=== PATIENT | male | born 1940 | race Caucasian/White ===

== ENCOUNTER 2019-01-13 06:46 | Inpatient (IN) | payer MEDICARE ==
[~2019-01-13] VITALS: Ht 170.2 cm; Wt 85.5 kg
[2019-01-13 07:13] LABS: BASO # 0.1 (0.0-0.2); BASO % 0.9 % (0.0-2.0); EOS # 0.4 (0.0-0.7); EOS % 5.4 % (0-4.0); GRAN # 3.3 (1.4-6.5); GRAN % 49.7 % (42.2-75.2); HEMATOCRIT 43.6 % (42.0-52.0); HEMOGLOBIN 14.5 g/dl (13.5-18.0); LYMPH # 2.2 (1.2-3.4); MEAN CELL VOLUME 97 fl (80.0-100.0); MEAN CORPUSCULAR HEMOGLOBIN 32 pg (27.0-31.0); MEAN CORPUSCULAR HGB CONC 33 g/dl (33.0-37.0); MEAN PLATELET VOLUME 9.1 fl (7.4-10.4); MONO # 0.7 (0.1-0.6); MONO % 10.7 % (1.7-9.3); PLATELET COUNT 246 K/mm3 (130-400)
[2019-01-13 07:18] LABS: PROTHROMBIN TIME 11.2 SECONDS (9.7-12.8)
[2019-01-13 07:21] LABS: PARTIAL THROMBOPLASTIN TIME 30.6 SECONDS (26.0-37.0)
[2019-01-13 07:23] LABS: ALBUMIN 3.7 gm/dL (3.5-5.0); BILIRUBIN,TOTAL 0.7 mg/dL (0.0-1.0); CALCIUM 8.8 mg/dL (8.4-10.2); CREATININE, serum 0.94 (0.66-1.25); POTASSIUM 4.2 mmol/L (3.4-5.0); TOTAL PROTEIN 6.8 gm/dL (6.4-8.2)
[2019-01-13 07:36] LABS: TROPONIN-I 0.036 ng/mL (0.000-0.035)
[2019-01-13 07:38] LABS: LIPASE 109 U/L (23-300)
[2019-01-13] MEDS ORDERED: VENTOLIN0.09 MG INH (09:41)
[2019-01-13] MEDS ORDERED: INCRUSE EL62.5 MCG/A INH (09:41)
[2019-01-13 10:23] VITALS: BP 132/87; PULSE 62; TEMP 97.2
[2019-01-13 13:29] LABS: CALCIUM 8.4 mg/dL (8.4-10.2); CREATININE, serum 0.83 (0.66-1.25); POTASSIUM 4.3 mmol/L (3.4-5.0)
[2019-01-13 15:21] LABS: HEMATOCRIT 39.4 % (42.0-52.0); HEMOGLOBIN 13.1 g/dl (13.5-18.0); MEAN CELL VOLUME 98 fl (80.0-100.0); MEAN CORPUSCULAR HEMOGLOBIN 32 pg (27.0-31.0); MEAN CORPUSCULAR HGB CONC 33 g/dl (33.0-37.0); MEAN PLATELET VOLUME 9.1 fl (7.4-10.4); PLATELET COUNT 235 K/mm3 (130-400); RED BLOOD COUNT 4.04 M/mm3 (4.20-5.60)
[2019-01-13 15:48] LABS: PARTIAL THROMBOPLASTIN TIME 35.6 SECONDS (26.0-37.0)
--- NOTE | 2019-01-13 18:09 | NUR ---
Pt arrived from the ED this morning, he has some C/O pain in the upper right quadrent, no C/O chest pain currently, Pt has been ambulatory in the room without issues, Vs have remained stable since arriving to the floor. Initial assessments have been completed.
[2019-01-13 19:31] VITALS: BP 133/63; PULSE 78; TEMP 97.8
--- NOTE | 2019-01-13 20:15 | NUR ---
Patient resting in bed, assessment completed, no complaints of pain. Heparin gtt infusing at 10 mls/hr at this time. Redraw of heparin xa at 2155 this evening. Returned from recliner now resting comfortably in bed. Has no further needs at this time.
[2019-01-13 23:58] VITALS: BP 117/71; PULSE 75; TEMP 98.9
[2019-01-14] VITALS (325 sets, daily range): BP systolic 118–165; BP diastolic 64–106; PULSE 56–75; TEMP 97.6–98.2; O2SAT 85–100
[2019-01-14 00:39] LABS: PARTIAL THROMBOPLASTIN TIME 76.1 SECONDS (26.0-37.0)
--- NOTE | 2019-01-14 06:15 | NUR ---
Tick found on patient near left upper thigh/groin. Removed by TARA Welsh. Placed in speciment cup and placed in patient's room.
--- NOTE | 2019-01-14 06:49 | NUR ---
report given to abimbola ross
[2019-01-14 07:43] LABS: BASO # 0.1 (0.0-0.2); BASO % 0.9 % (0.0-2.0); EOS # 0.3 (0.0-0.7); GRAN # 4.7 (1.4-6.5); GRAN % 57.5 % (42.2-75.2); HEMATOCRIT 41.6 % (42.0-52.0); HEMOGLOBIN 13.6 g/dl (13.5-18.0); LYMPH # 2.4 (1.2-3.4); LYMPH % 28.9 % (20.0-51.0); MEAN CELL VOLUME 97 fl (80.0-100.0); MEAN CORPUSCULAR HEMOGLOBIN 32 pg (27.0-31.0); MEAN CORPUSCULAR HGB CONC 33 g/dl (33.0-37.0); MEAN PLATELET VOLUME 9.7 fl (7.4-10.4); MONO # 0.7 (0.1-0.6); MONO % 8.3 % (1.7-9.3); PLATELET COUNT 247 K/mm3 (130-400); RED BLOOD COUNT 4.27 M/mm3 (4.20-5.60); REDCELL DISTRIBUTION WIDTH-CV 12.9 % (11.5-14.5)
[2019-01-14 07:58] LABS: CALCIUM 8.9 mg/dL (8.4-10.2); CHOLESTEROL RISK RATIO 4.3; CREATININE, serum 0.88 (0.66-1.25); POTASSIUM 4.1 mmol/L (3.4-5.0)
[2019-01-14 08:04] LABS: TROPONIN-I 0.428 ng/mL (0.000-0.035)
--- NOTE | 2019-01-14 10:24 | NUR ---
Pt awake with family in room, no C/O pain this morning, shift assessments complete, left Pt call light in reach, bed in lowest position.
--- NOTE | 2019-01-14 10:51 | NUR ---
SW attended clinical rounds to discuss discharge planniing. Patient lives independently at home with his . Patient's PCP is Dr Champion and he obtains prescriptions from [facility]. Patient does not use any DME or home health services. Patient does not have a DPOA but will inform SW if he would like to sign one. SW does not anticipate any discharge needs.
--- NOTE | 2019-01-14 12:42 | NUR ---
SEE MERGE DOCUMENTATION FOR MEDICATION ADMINISTRATION TIMES AND INTRA/POST PROCEDURE SEDATION ASSESSMENTS.
--- NOTE | 2019-01-14 13:41 | NUR ---
Report received from TARA Avalos.
--- NOTE | 2019-01-14 13:47 | NUR ---
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
--- NOTE | 2019-01-14 14:15 | NUR ---
Report received from TARA Simms.
--- NOTE | 2019-01-14 14:27 | NUR ---
Dentures brought down by TARA Simms.
--- NOTE | 2019-01-14 17:04 | NUR ---
Patient resting in bed, denies needs at this time, call light within reach.
--- NOTE | 2019-01-14 19:33 | NUR ---
Bedside report given to TARA Aponte, all lines and tubes verified.
[2019-01-15] VITALS (270 sets, daily range): BP systolic 105–134; BP diastolic 55–75; PULSE 53–67; TEMP 97.6–98; O2SAT 86–100
[2019-01-15 05:23] LABS: BASO # 0.1 (0.0-0.2); BASO % 0.6 % (0.0-2.0); EOS # 0.3 (0.0-0.7); EOS % 3.3 % (0-4.0); GRAN # 6.2 (1.4-6.5); GRAN % 68.4 % (42.2-75.2); HEMATOCRIT 42.5 % (42.0-52.0); LYMPH # 1.7 (1.2-3.4); LYMPH % 18.3 % (20.0-51.0); MEAN CELL VOLUME 97 fl (80.0-100.0); MEAN CORPUSCULAR HEMOGLOBIN 32 pg (27.0-31.0); MEAN CORPUSCULAR HGB CONC 33 g/dl (33.0-37.0); MEAN PLATELET VOLUME 9.3 fl (7.4-10.4); MONO # 0.8 (0.1-0.6); MONO % 9.2 % (1.7-9.3); PLATELET COUNT 242 K/mm3 (130-400); RED BLOOD COUNT 4.38 M/mm3 (4.20-5.60); REDCELL DISTRIBUTION WIDTH-CV 13.1 % (11.5-14.5)
[2019-01-15 05:34] LABS: CALCIUM 9.3 mg/dL (8.4-10.2); CREATININE, serum 0.84 (0.66-1.25); POTASSIUM 4.1 mmol/L (3.4-5.0)
--- NOTE | 2019-01-15 07:00 | NUR ---
Bedside report received from TARA Aponte.
--- NOTE | 2019-01-15 07:35 | NUR ---
Assessment complete, patient resting in bed waiting on breakfast, dressing removed from right femoral groin site, replaced with band-aid. Patient denies needs at this time, call light within reach.
--- NOTE | 2019-01-15 09:15 | NUR ---
Special Delivery Carrier in with patient.
--- NOTE | 2019-01-15 10:42 | NUR ---
Patient ambulating in hallway.
--- NOTE | 2019-01-15 11:20 | NUR ---
Initial visit; Patient and his family thanked Parts Back Counter Man for offering encouragement and God's blessings. Parts Back Counter Man will keep "Gene" in her prayers.
--- NOTE | 2019-01-15 11:43 | NUR ---
Patient ambulating in room, denies needs at this time, call light within reach.
[2019-01-15] MEDS ORDERED: BRILINTA90 MG PO (12:22)
[2019-01-15] MEDS ORDERED: LIPITOR 80MG80 MG PO (12:22)
[2019-01-15] MEDS ORDERED: TOPROL XL 50MG50 MG PO (12:22)
[2019-01-15] MEDS ORDERED: ZESTRIL 10MG10 MG PO (12:23)
[2019-01-15] MEDS ORDERED: ASPIRIN E.C. 8181 MG PO (12:23)
--- NOTE | 2019-01-15 14:27 | NUR ---
Discharge instructions given, questions invited and answered. Family at bedside.
--- NOTE | 2019-01-15 14:39 | NUR ---
Patient escorted out to private vehicle with family, all belongings sent with patient.
== END 2019-01-15 14:39 | disposition home or self-care (01) | DRG 247 ==
LOC: COL.ER 06:46 → MEDICAL 07:56 → ICU 01-14 13:47
PROVIDERS: Emergency Medicine; Hospitalist; Internal Medicine Cardiovascular Disease; Physician Assistant; ADMIT Internal Medicine
PROC: 027135Z Dilation of Coronary Artery, Two Arteries with Two Drug-eluting Intraluminal Devices, Percutaneous Approach (ICD-10-PCS; principal; 2019-01-14)
PROC: 4A023N7 Measurement of Cardiac Sampling and Pressure, Left Heart, Percutaneous Approach (ICD-10-PCS; 2019-01-14)
PROC: B2111ZZ Fluoroscopy of Multiple Coronary Arteries using Low Osmolar Contrast (ICD-10-PCS; 2019-01-14)
DX: I21.4 Non-ST elevation (NSTEMI) myocardial infarction (principal); I50.30 Unspecified diastolic (congestive) heart failure; J44.9 Chronic obstructive pulmonary disease, unspecified; F17.290 Nicotine dependence, other tobacco product, uncomplicated; I25.10 Atherosclerotic heart disease of native coronary artery without angina pectoris
CPT/HCPCS: 99222-AI; 99232-AI; 99239; C1725; C1760; C1769; C1874; C1887; C1894; J0583; J1644; J1650; J2250; J3010; J7030; Q9967

== ENCOUNTER 2019-04-23 13:30 | Outpatient (RCR) | payer MEDICARE ==
[~2019-04-23 13:30] MED LIST: ASPIRIN E.C. 8181 MG PO; BRILINTA90 MG PO; INCRUSE EL62.5 MCG/A INH; LIPITOR 80MG80 MG PO; TOPROL XL 50MG50 MG PO; VENTOLIN0.09 MG INH; ZESTRIL 10MG10 MG PO
== END 2019-04-27 | disposition home or self-care (01) ==
LOC: COL.CR
DX: Z48.812 Encounter for surgical aftercare following surgery on the circulatory system (principal); Z95.2 Presence of prosthetic heart valve

== ENCOUNTER 2019-05-09 13:11 | Outpatient (RCR) | payer MEDICARE | END 2019-05-16 14:24 | disposition still patient (30) | LOC: COL.CR 13:11 | DX: I50.9 Heart failure, unspecified (principal); Z95.5 Presence of coronary angioplasty implant and graft ==

== ENCOUNTER 2020-02-11 13:15 | Outpatient (RCR) | payer MEDICARE | END 2020-04-01 | disposition still patient (30) | LOC: WSC | DX: M16.11 Unilateral primary osteoarthritis, right hip (principal); Z96.641 Presence of right artificial hip joint ==

== ENCOUNTER 2020-07-20 12:49 | Outpatient (RCR) | payer MEDICARE | END 2020-08-23 | disposition home or self-care (01) | LOC: WSST | DX: R13.12 Dysphagia, oropharyngeal phase (principal) ==

== ENCOUNTER → 2020-08-09 | Outpatient (CLI) | payer MEDICARE | LOC: COL.RAD 15:22 | DX: R13.10 Dysphagia, unspecified (principal) ==

== ENCOUNTER 2021-08-04 06:22 | Day surgery (SDC) | payer MEDICARE ==
[~2021-08-04] VITALS: Ht 170.2 cm; Wt 88.1 kg
[2021-08-04] VITALS (7 sets, daily range): BP systolic 91–116; BP diastolic 43–58; PULSE 51–65; TEMP 97.7–97.9
[2021-08-04] MEDS ORDERED: PLAVIX 75MG TAB75 MG PO (08:26)
[2021-08-04] MEDS ORDERED: COZAAR 25MG25 MG/TAB PO (08:27)
[2021-08-04] MEDS ORDERED: TOPROL XL 50MG50 MG PO (08:28)
[2021-08-04] MEDS ORDERED: ASPIRIN 81M81 MG/TA2 PO (08:29)
[2021-08-04] MEDS ORDERED: NITROSTAT0.4 MG/TAB SL (08:29)
[2021-08-04] MEDS ORDERED: LIPITOR 80MG80 MG PO (08:30)
[2021-08-04] MEDS ORDERED: ARICEPT10 MG PO (08:30)
[2021-08-04] MEDS ORDERED: K-TAB10 PO (08:31)
[2021-08-04] MEDS ORDERED: VITAMIN B-625 MG PO (08:32)
[2021-08-04] MEDS ORDERED: NORCO 325 MG-51 TAB PO (09:52)
--- NOTE | 2021-08-04 10:25 | NUR ---
Patient returns to room 7 per cart from PACU accompanied by Jojo RN and is awake and alert. IV fluids infusing and site is free of redness or swelling. Spouse in room. Siderails up x2 and call light in reach. Allowed to rest.
--- NOTE | 2021-08-04 10:40 | NUR ---
Resting and sipping on water and Pepsi. Encouraged deep breathing.
--- NOTE | 2021-08-04 10:55 | NUR ---
Watches TV. Denies pain or nausea.
--- NOTE | 2021-08-04 11:10 | NUR ---
Eating crackers and applesauce. Exofin skin glue covering incisions dry and wound edges remain well approximated.
--- NOTE | 2021-08-04 11:35 | NUR ---
Oxygen at 2L now. Watches TV. Denies nausea or need for pain medications.
--- NOTE | 2021-08-04 12:03 | NUR ---
IV to INT. Assisted up to the bathroom and gait is steady. Patient voids and returns to room. Sitting on edge of cart. Sipping on Pepsi.
--- NOTE | 2021-08-04 12:30 | NUR ---
INT discontinued and site is free of redness or swelling. Patient is dressed. Given discharge instructions and voices understanding of these. Instructed that pain medication is at [facility].
--- NOTE | 2021-08-04 12:34 | NUR ---
Patient dismissed to home driven by spouse and taken to vehicle per wheelchair and assisted into vehicle with instructions in hand.
== END 2021-08-04 12:34 | disposition home or self-care (01) ==
LOC: SDCO 06:22
DX: K40.90 Unilateral inguinal hernia, without obstruction or gangrene, not specified as recurrent (principal); I25.10 Atherosclerotic heart disease of native coronary artery without angina pectoris; I10 Essential (primary) hypertension; I25.2 Old myocardial infarction; J44.9 Chronic obstructive pulmonary disease, unspecified; E78.5 Hyperlipidemia, unspecified; M19.90 Unspecified osteoarthritis, unspecified site; Z79.899 Other long term (current) drug therapy; Z79.82 Long term (current) use of aspirin; Z79.02 Long term (current) use of antithrombotics/antiplatelets; Z87.891 Personal history of nicotine dependence; Z95.1 Presence of aortocoronary bypass graft
CPT/HCPCS: C1781; J0690; J1100; J1885; J2405; J2704; J3010; J7120

== ENCOUNTER 2023-12-11 05:08 | Day surgery (SDC) | payer MEDICARE ==
[~2023-12-11] VITALS: Ht 170.2 cm; Wt 96.4 kg
[2023-12-11] VITALS (14 sets, daily range): BP systolic 96–155; BP diastolic 50–72; PULSE 50–66; TEMP 97.9–98.2
[~2023-12-11 05:08] MED LIST changes: +ARICEPT10 MG PO; +ASPIRIN 81M81 MG/TA2 PO; +COZAAR 25MG25 MG/TAB PO; +K-TAB10 PO; +NITROSTAT0.4 MG/TAB SL; +NORCO 325 MG-51 TAB PO; +PLAVIX 75MG TAB75 MG PO; +VITAMIN B-625 MG PO
[2023-12-11] MEDS ORDERED: POTASSIUM PO (06:19)
[2023-12-11] MEDS ORDERED: MIRTAZAPINE7.5 MG PO (06:20)
[2023-12-11] MEDS ORDERED: REQUIP2 MG PO (06:23)
[2023-12-11] MEDS ORDERED: Ondansetron 4 MG/2 ML VIAL ONE (06:50)
[2023-12-11] MEDS ORDERED: Lidocaine PF 2% (20 MG/ML) 5 ML VIAL ONE (06:50)
[2023-12-11] MEDS ORDERED: fentaNYL 50 MCG/ML 2 ML VIAL ONE (06:50)
[2023-12-11] MEDS ORDERED: dexAMETHasone 10 MG/ML VIAL ONE (06:50)
[2023-12-11] MEDS ORDERED: Meperidine 50 MG/ML 1 ML VIAL IV PRN (07:00)
[2023-12-11] MEDS ORDERED: droPERidol 2.5 MG/ML 2 ML VIAL IV PRN (07:00)
[2023-12-11] MEDS ORDERED: HYDROmorphone 1 MG/1 ML SYRINGE [PACU/SDC ONLY] IV PRN (07:00)
[2023-12-11] MEDS ORDERED: fentaNYL 50 MCG/ML 1 ML SYRINGE/VIAL [PACU/SDC ONLY] IV PRN (07:00)
[2023-12-11] MEDS ORDERED: hydrALAZINE 20 MG/ML 1 ML VIAL IV PRN (07:00)
[2023-12-11] MEDS ORDERED: ePHEDrine 50 MG/ML VIAL ONE (07:16)
[2023-12-11] MEDS ORDERED: NS Irrig Soln 3000 ML SOLN IR PRN (07:30)
[2023-12-11] MEDS ORDERED: Magnes Hydrox (MOM) 80 MG/ML 30 ML CUP PO PRN (07:30)
[2023-12-11] MEDS ORDERED: Naloxone 0.4 MG/ML VIAL IV PRN (07:30)
[2023-12-11] MEDS ORDERED: Iohexol 350 - 100 ML VIAL URETER-B ONE (07:30)
[2023-12-11] MEDS ORDERED: Lidocaine 2% (20 MG/ML) 20 ML UROJET UR ONE (07:30)
[2023-12-11] MEDS ORDERED: 1/2 NS & 20 mEq KCl 1,000 ML IV SCH (07:30)
[2023-12-11] MEDS ORDERED: Hyoscyamine 0.125 MG Sublingual TAB SL PRN (07:30)
[2023-12-11] MEDS ORDERED: Ondansetron 4 MG/2 ML VIAL IV PRN (07:30)
--- NOTE | 2023-12-11 08:45 | NUR ---
pt brought to room from pacu, at bedside. vss. CBI running at a fast rate, clear output in rousseau bag. pt experiencing bladder spasms, repositioned pt and he feels much better. pt tolerating clear liquids. med rec and assessment complete. INT to right hand patent. pt on 2L nasal cannula. scds to ble. pt denies needs at this time. call light in reach. oriented to room.
[2023-12-11] MEDS ORDERED: Losartan 25 MG TAB PO SCH (09:00)
[2023-12-11] MEDS ORDERED: Docusate Sodium 100 MG CAP PO SCH (09:00)
--- NOTE | 2023-12-11 14:19 | NUR ---
assisted pt to bathroom, pt had medium sized hard bowel movement. pt reports feeling less bladder spasms already. levsin also given to relieve symptoms. pt transferred to recliner, gait steady. running at moderate rate w pink urine output.
[2023-12-11] MEDS ORDERED: LR 1,000 ML IV SCH (15:00)
[2023-12-11] MEDS ORDERED: Melatonin 3 MG TAB PO PRN (21:00)
[2023-12-11] MEDS ORDERED: Donepezil 5 MG TAB PO SCH (21:00)
--- NOTE | 2023-12-11 21:30 | NUR ---
PT IN BED, HAS CBI RUNNING SLOW WITH PINK URINE IN TUBING. YEN PATENT. TAKING FLUIDS WELL, CAPPED IVF NOW. INT TO RT HAND NOW. HS MEDS GIVEN. IS ALERT AND ORIENTED X4. SCDS ON. WEARING OXYGEN AT 1L/NC.
--- NOTE | 2023-12-11 23:53 | NUR ---
NORCO GIVEN FOR BLADDER PAIN. PT READY FOR SLEEP.
[2023-12-12 00:06] VITALS: BP 133/73; PULSE 68; TEMP 98.2
[2023-12-12 01:36] VITALS: BP_SYST 133
[2023-12-12 03:49] VITALS: BP 124/73; PULSE 66; TEMP 98.1
[2023-12-12 04:33] VITALS: BP_SYST 124
--- NOTE | 2023-12-12 06:00 | NUR ---
CBI SLOW, URINE LIGHT PINK. DENIES PAIN.
[2023-12-12 08:00] VITALS: BP 129/71; PULSE 71; TEMP 98.1
[2023-12-12] MEDS ORDERED: rOPINIRole 1 MG TAB PO SCH (08:00)
--- NOTE | 2023-12-12 08:30 | NUR ---
pt a&ox4 resting in bed. meds given and assessment complete. vss. cbi running slow w pink clear output. pt reports some discomfort but denies wanting pain medication. pt denies needs at this time. call light in reach.
--- NOTE | 2023-12-12 08:45 | NUR ---
rousseau discontinued without difficulty. instructed pt on 4 cup routine for discharge.
[2023-12-12 09:00] VITALS: BP_SYST 129
--- NOTE | 2023-12-12 11:35 | NUR ---
INT discontinued. discharge instructions given to pt, all questions answered. escorted to personal vehicle by wheelchair.
== END 2023-12-12 11:35 | disposition home or self-care (01) ==
LOC: SDCO 05:08 → SURG 08:45 → SDCO 17:00
DX: C67.4 Malignant neoplasm of posterior wall of bladder (principal); R35.1 Nocturia; R39.15 Urgency of urination; R31.0 Gross hematuria; F17.210 Nicotine dependence, cigarettes, uncomplicated; Z95.5 Presence of coronary angioplasty implant and graft; Z85.828 Personal history of other malignant neoplasm of skin
CPT/HCPCS: OP; A9270; C1769; J0690; J1100; J2405; J2704; J3010; J3480; J7120; Q9967

== ENCOUNTER 2024-03-08 19:25 | Emergency (ER) | payer MEDICARE ==
[~2024-03-08] VITALS: Ht 170.2 cm; Wt 95.5 kg
[~2024-03-08 19:25] MED LIST changes: +MIRTAZAPINE7.5 MG PO; +POTASSIUM PO; +REQUIP2 MG PO
[2024-03-08 19:33] VITALS: BP 137/67; TEMP 97.8
[2024-03-08] MEDS ORDERED: AMOXICILLIN 8751 TAB PO (19:44)
[2024-03-08] MEDS ORDERED: Amoxicillin/Clavulanate K+ 875/125 MG TAB PO ONE (19:45)
[2024-03-08 20:09] VITALS: PULSE 58
[2024-03-09] MEDS ORDERED: AMOXICILLIN 8751 TAB PO (11:12)
== END 2024-03-08 20:15 | disposition home or self-care (01) ==
LOC: COL.ER 19:25
DX: S61.452A Open bite of left hand, initial encounter (principal); L03.114 Cellulitis of left upper limb; F17.200 Nicotine dependence, unspecified, uncomplicated; Z23 Encounter for immunization; W55.01XA Bitten by cat, initial encounter

== ENCOUNTER 2024-06-09 08:07 | Emergency (ER) | payer MEDICARE ==
[~2024-06-09] VITALS: Ht 172.7 cm; Wt 95.5 kg
[~2024-06-09 08:07] MED LIST changes: +AMOXICILLIN 8751 TAB PO
[2024-06-09 08:11] VITALS: TEMP 97.7
[2024-06-09 09:00] LABS: BASO # 0.1 K/mm3 (0.0-0.2); BASO % 0.9 % (0.0-2.0); EOS # 0.1 K/mm3 (0.0-0.7); GRAN # 7.8 K/mm3 (1.4-6.5); GRAN % 74.1 % (42.2-75.2); HEMOGLOBIN 11.7 g/dl (13.5-18.0); LYMPH # 1.4 K/mm3 (1.2-3.4); LYMPH % 13.7 % (20.0-51.0); MEAN CELL VOLUME 109 fl (80.0-100.0); MEAN CORPUSCULAR HEMOGLOBIN 35 pg (27-31); MEAN CORPUSCULAR HGB CONC 32 g/dl (33.0-37.0); MEAN PLATELET VOLUME 9.7 fl (7.4-10.4); MONO % 9.8 % (1.7-9.3); PLATELET COUNT 233 K/mm3 (130-400); RED BLOOD COUNT 3.39 M/mm3 (4.20-5.60); REDCELL DISTRIBUTION WIDTH-CV 14.5 % (11.5-14.5)
[2024-06-09 09:18] LABS: ALBUMIN 3.4 g/dL (3.4-4.8); BILIRUBIN,TOTAL 1.7 mg/dL (0.2-1.2); CREATININE, serum 1.12 mg/dL (0.72-1.25); POTASSIUM 4.4 mEq/L (3.5-4.5); TOTAL PROTEIN 5.9 g/dl (6.2-8.1)
[2024-06-09 09:23] LABS: TROPONIN-I 0.017 ng/mL (0.00-0.033)
[2024-06-09] MEDS ORDERED: Iohexol 300 - 100 ML VIAL IV ONE (11:06)
[2024-06-09] MEDS ORDERED: NS 100 ML IV SCH (11:07)
[2024-06-09 15:20] VITALS: BP 125/87; PULSE 56
--- NOTE | 2024-06-09 15:26 | NUR ---
fitness worker was informed by TARA Dillon that pt is requiring 3L oxygen and does not have a portable, but is on oxygen at home by [facility]. SW called [facility] and they report pt is only on nocturnal O2 and would need an ex-ox. RADHA informed RN who states they need the bed and cannot wait for this as he had an appointment with them today. They want to just give him the hospital's oxygen to get home, then return. RADHA informed Director Stephanie Beebe for guidance. RADHA and Director met with RN who states they can have pt in the family waiting room and it was documeted in the ED Triage Assessment. RADHA retrieved this and obtained oxygen script from Dr. Palencia. RADHA faxed all documents to [facility] who is aware and will deliver to family room once reviewed.
--- NOTE | 2024-06-09 16:13 | NUR ---
RADHA Sexton checked on the status of O2 and informed RN that [facility] reports it will be about 20min for delivery.
== END 2024-06-09 15:40 | disposition home or self-care (01) ==
LOC: COL.ER 08:07
PROVIDERS: Personal Emergency Response Attendant
DX: R10.13 Epigastric pain (principal); R07.9 Chest pain, unspecified; F17.200 Nicotine dependence, unspecified, uncomplicated; Z95.5 Presence of coronary angioplasty implant and graft
CPT/HCPCS: Q9967

== ENCOUNTER → 2024-06-12 | Outpatient (CLI) | payer MEDICARE ==
[2024-06-12 14:52] LABS: BASO # 0.1 K/mm3 (0.0-0.2); BASO % 0.6 % (0.0-2.0); EOS # 0.1 K/mm3 (0.0-0.7); EOS % 0.6 % (0.0-4.0); GRAN # 6.9 K/mm3 (1.4-6.5); GRAN % 71.9 % (42.2-75.2); HEMOGLOBIN 11.5 g/dl (13.5-18.0); LYMPH # 1.6 K/mm3 (1.2-3.4); LYMPH % 16.4 % (20.0-51.0); MEAN CELL VOLUME 106 fl (80.0-100.0); MEAN CORPUSCULAR HEMOGLOBIN 34 pg (27-31); MEAN CORPUSCULAR HGB CONC 33 g/dl (33.0-37.0); MEAN PLATELET VOLUME 9.6 fl (7.4-10.4); MONO % 10.2 % (1.7-9.3); PLATELET COUNT 216 K/mm3 (130-400); RED BLOOD COUNT 3.34 M/mm3 (4.20-5.60); REDCELL DISTRIBUTION WIDTH-CV 14.3 % (11.5-14.5)
[2024-06-12 14:58] LABS: HEMATOCRIT 35.3 % (42.0-52.0)
[2024-06-12 15:12] LABS: ALBUMIN 3.5 g/dL (3.4-4.8); CALCIUM 8.5 mg/dL (8.4-10.2); POTASSIUM 4.4 mEq/L (3.5-4.5); TOTAL PROTEIN 6.3 g/dl (6.2-8.1)
[2024-06-12 15:18] LABS: TROPONIN-I 0.026 ng/mL (0.00-0.033)
== END ==
LOC: COL.RAD 14:12
PROVIDERS: Physician Assistant Medical
DX: I51.7 Cardiomegaly (principal); J44.9 Chronic obstructive pulmonary disease, unspecified